=== PATIENT | female | born 1980 | race Caucasian/White ===

== ENCOUNTER 2016-10-22 21:13 | Emergency (ER) | payer SELFPAY ==
[~2016-10-22] VITALS: Ht 167.6 cm; Wt 95.4 kg
[2016-10-22 21:27] VITALS: BP 153/76
[2016-10-22 22:08] LABS: INFLUENZA VIRUS TYPE A ANTIBOD Negative (NEGATIVE); INFLUENZA VIRUS TYPE B ANTIBOD Negative (NEGATIVE)
[2016-10-22] MEDS ORDERED: ED- TRAMADOL 50 MG (ULTRAM) 6 TABLETS/BTL PO ONE (22:15)
[2016-10-22] MEDS ORDERED: AMOXICILLIN 500 MG (AMOXIL) CAPSULE PO ONE (22:15)
== END 2016-10-22 22:20 | disposition home or self-care (01) ==
LOC: ED 21:14
DX: J02.0 Streptococcal pharyngitis (principal)
CPT/HCPCS: 87502; 87651; 99283